=== PATIENT | female | born 2000 | race Two or more races ===

== ENCOUNTER 2023-05-21 09:31 | Inpatient (IN) | payer OTHER ==
[~2023-05-21] VITALS: Ht 167.6 cm; Wt 72.6 kg
[2023-05-21] MEDS ORDERED: ONDANSETRON ODT 4 MG TAB PO ONE (10:15)
[2023-05-21 10:37] LABS: Basophils # (auto) 0 10 ^3/uL (0-0.2); Basophils % (auto) 0.1 % (0.0-2.0); Eosinophils # (auto) 0 10 ^3/uL (0-0.8); Eosinophils % (auto) 0.1 % (0.0-7.0); Hematocrit 36.8 % (36.0-46.0); Hemoglobin 12.1 g/dL (12.2-16.2); Lymphocytes # (auto) 0.5 10 ^3/uL (0.4-5.4); Lymphocytes % (auto) 4.7 % (10.0-50.0); Mean Corpuscular Hemoglobin 29.5 pg (28.0-32.0); Mean Corpuscular Hgb Conc. 32.8 g/dL (32.0-36.0); Mean Corpuscular Volume 89.9 fL (80.0-100.0); Monocytes # (auto) 0.7 10 ^3/uL (0-1.3); Monocytes % (auto) 5.9 % (0.0-12.0); Neutrophils # (auto) 9.9 10 ^3/uL (1.6-8.6); Neutrophils % (auto) 89.2 % (37.0-80.0); Red Blood Cells 4.09 10^6/uL (4.0-5.20); Red Cell Distribution Width 13.4 % (11.8-14.3); White Blood Cell 11.1 10^3/uL (4.4-10.8)
[2023-05-21 10:54] LABS: Albumin 4.1 g/dL (3.2-4.8); Alkaline Phosphatase 47 U/L (46-116); Anion Gap 2 (5-15); Aspartate Aminotransferase 9 U/L (13-40); BUN/Creatinine Ratio 9.9 (10.0-20.0); Blood Urea Nitrogen 8 mg/dL (9-23); Calcium 9.1 mg/dL (8.7-10.4); Carbon Dioxide 28 mmol/L (20-30); Chloride 105 mmol/L (98-107); Glucose 111 mg/dL (74-106); Lipase 38 U/L (12-53); Potassium 3.7 mmol/L (3.5-5.1); Sodium 135 mmol/L (136-145)
[2023-05-21 10:55] LABS: Bilirubin, Total 0.6 mg/dL (0.2-1.0); Total Protein 7.1 g/dL (5.7-8.2)
[2023-05-21 10:56] LABS: Alanine Aminotransferase < 9 U/L (7-40)
[2023-05-21] MEDS: SODIUM CHLORIDE 0.9% 1,000 ML IVB ONE (11:06)
[2023-05-21] MEDS: ONDANSETRON HCL 4 MG/2 ML VIAL IV ONE ×2 (11:07→21:45)
[2023-05-21] MEDS: ONDANSETRON HCL 4 MG/2 ML VIAL ONE (11:11)
[2023-05-21] MEDS: MORPHINE SULFATE INJ 2 MG/ml SYRG IV ONE ×2 (12:29→21:45)
[2023-05-21] MEDS ORDERED: METR-344 PO (13:33)
[2023-05-21] MEDS ORDERED: ACET500T58 PO (13:33)
[2023-05-21] MEDS ORDERED: METO-281 PO (13:33)
[2023-05-21] MEDS: ACETAMINOPHEN 500 MG TAB PO ONE (14:33)
[2023-05-21] MEDS: PIPERACILLIN-TAZOB 3.375GM 100 ML IV ONE (14:34)
[2023-05-21] MEDS: IBUPROFEN 600 MG TAB PO ONE (16:03)
[2023-05-21] MEDS: SODIUM CHLORIDE 0.9% 1,000 ML IV ONE (16:04)
[2023-05-21 19:30] VITALS: PULSE 62; RESP 18; O2SAT 99
[2023-05-21] MEDS: NOREPINEPHRINE 8 MG/250ML KIT 250 ML IV ONE (20:28)
[2023-05-21] MEDS: NOREPINEPHRINE 8 MG/250ML KIT 250 ML IV SCH (20:30)
[2023-05-21 21:24] LABS: Urine Bacteria NONE SEEN /hpf (None Seen); Urine Blood Negative /uL (Negative); Urine Clarity Clear (Clear); Urine Color Yellow (Yellow); Urine Mucus FEW (None Seen); Urine Protein, UAD TRACE (Negative); Urine Specific Gravity 1.027 (1.001-1.035); Urine Urobilinogen Normal (Negative); Urine WBC 13 /hpf (0 - 5)
[2023-05-21] MEDS: ACETAMINOPHEN 325 MG TAB PO ONE (21:36)
[2023-05-21] MEDS ORDERED: DOCUSATE SOD 100 MG CAP PO PRN (22:15)
[2023-05-21] MEDS ORDERED: MORPHINE SULFATE INJ 2 MG/ml SYRG IV PRN (23:45)
[2023-05-21] MEDS ORDERED: NITROGLYCERIN 0.4 MG SL TAB SL PRN (23:45)
[2023-05-22 05:37] LABS: Basophils # (auto) 0 10 ^3/uL (0-0.2); Basophils % (auto) 0.2 % (0.0-2.0); Eosinophils # (auto) 0 10 ^3/uL (0-0.8); Eosinophils % (auto) 0.3 % (0.0-7.0); Hematocrit 31.5 % (36.0-46.0); Hemoglobin 10.4 g/dL (12.2-16.2); Lymphocytes # (auto) 1.2 10 ^3/uL (0.4-5.4); Lymphocytes % (auto) 18.5 % (10.0-50.0); Mean Corpuscular Hemoglobin 29.6 pg (28.0-32.0); Mean Corpuscular Volume 89.6 fL (80.0-100.0); Monocytes # (auto) 0.7 10 ^3/uL (0-1.3); Monocytes % (auto) 10.6 % (0.0-12.0); Neutrophils # (auto) 4.5 10 ^3/uL (1.6-8.6); Neutrophils % (auto) 70.4 % (37.0-80.0); Red Blood Cells 3.51 10^6/uL (4.0-5.20); Red Cell Distribution Width 13.7 % (11.8-14.3); White Blood Cell 6.4 10^3/uL (4.4-10.8)
[2023-05-22 05:50] LABS: Albumin 3.1 g/dL (3.2-4.8); Alkaline Phosphatase 38 U/L (46-116); Aspartate Aminotransferase 9 U/L (13-40); Calcium 7.9 mg/dL (8.7-10.4); Carbon Dioxide 27 mmol/L (20-30); Glucose 89 mg/dL (74-106); Total Protein 5.7 g/dL (5.7-8.2)
[2023-05-22 06:03] LABS: Anion Gap 2 (5-15); Chloride 110 mmol/L (98-107); Potassium 3.3 mmol/L (3.5-5.1); Sodium 139 mmol/L (136-145)
[2023-05-22] MEDS: PIPERACILLIN-TAZOB 3.375GM 100 ML IV SCH (06:03)
[2023-05-22 06:08] LABS: Alanine Aminotransferase < 9 U/L (7-40); BUN/Creatinine Ratio 7.9 (10.0-20.0); Blood Urea Nitrogen < 5 mg/dL (9-23)
[2023-05-22 07:08] LABS: Bilirubin, Total 0.4 mg/dL (0.2-1.0)
[2023-05-22 08:00] VITALS: PULSE 69; RESP 20; O2SAT 99
[2023-05-22] MEDS: IBUPROFEN 600 MG TAB PO PRN (08:23)
[2023-05-22] MEDS: DICYCLOMINE HCL (10MG/ML) 2 ML AMPULE IM ONE (09:33)
[2023-05-22] MEDS: MAALOX PLUS or MAALOX 30 ML PO ONE (09:35)
[2023-05-22] MEDS: LIDOCAINE VISCOUS 2% 15ML UD PO ONE (09:35)
[2023-05-22] MEDS: POTASSIUM CHL 20 Meq TABLET PO ONE (09:55)
[2023-05-22] MEDS: SOD CHL 0.9%/ KCL 40MEQ 1,000 ML IV SCH (11:54)
[2023-05-22] MEDS ORDERED: DICYCLOMINE HCL (10MG/ML) 2 ML AMPULE IM PRN (14:00)
[2023-05-22] MEDS: metroNIDAZOLE 500MG/100ML 100 ML IV SCH (15:01)
[2023-05-22] MEDS: MORPHINE SULFATE INJ 2 MG/ml SYRG IV PRN (15:31)
[2023-05-22 15:42] VITALS: PULSE 77; RESP 18; O2SAT 97
[2023-05-22] MEDS ORDERED: ACET650T12 PO (15:45)
[2023-05-22 16:00] VITALS: BP 102/63; PULSE 68; RESP 20; TEMP 97.4; O2SAT 99
[2023-05-22] MEDS: HYDROcodone-ACET 5/325MG TAB PO PRN (17:14)
[2023-05-22] MEDS: MAALOX PLUS or MAALOX 30 ML PO PRN (17:15)
[2023-05-22 20:00] VITALS: PULSE 74
[2023-05-22 21:00] VITALS: BP 102/54; PULSE 71; RESP 20; TEMP 98.4; O2SAT 98
[2023-05-22] MEDS: ONDANSETRON HCL 4 MG/2 ML VIAL IV PRN (21:42)
[2023-05-23] VITALS (7 sets, daily range): BP systolic 96–143; BP diastolic 49–76; PULSE 53–76; RESP 16–18; TEMP 97.2–98.4; O2SAT 93–100
[2023-05-23] MEDS: MELATONIN 5 MG TAB PO ONE (00:59)
[2023-05-23] MEDS ORDERED: IOHEXOL 300 MG/ML 100ML BOTTLE IJ ONE (06:06)
[2023-05-23] MEDS: AZITHROMYCIN 500MG/ 250ML 250 ML IV SCH (10:21)
[2023-05-23] MEDS ORDERED: LORazepam 2MG/ML-1ML VIAL IV PRN (14:45)
[2023-05-23 15:11] LABS: Basophils # (auto) 0 10 ^3/uL (0-0.2); Basophils % (auto) 0.4 % (0.0-2.0); Eosinophils # (auto) 0 10 ^3/uL (0-0.8); Eosinophils % (auto) 0.5 % (0.0-7.0); Lymphocytes # (auto) 1.7 10 ^3/uL (0.4-5.4); Lymphocytes % (auto) 30.1 % (10.0-50.0); Mean Corpuscular Hemoglobin 29.7 pg (28.0-32.0); Mean Corpuscular Hgb Conc. 33.4 g/dL (32.0-36.0); Mean Corpuscular Volume 88.9 fL (80.0-100.0); Monocytes # (auto) 0.5 10 ^3/uL (0-1.3); Monocytes % (auto) 9.3 % (0.0-12.0); Neutrophils # (auto) 3.4 10 ^3/uL (1.6-8.6); Neutrophils % (auto) 59.7 % (37.0-80.0); Red Blood Cells 3.71 10^6/uL (4.0-5.20); Red Cell Distribution Width 13.3 % (11.8-14.3); White Blood Cell 5.6 10^3/uL (4.4-10.8)
[2023-05-23] MEDS: MECLIZINE HCL 25 MG TAB PO PRN (15:17)
[2023-05-23 16:01] LABS: Chloride 106 mmol/L (98-107); Potassium 3.9 mmol/L (3.5-5.1); Sodium 137 mmol/L (136-145)
[2023-05-23 16:02] LABS: Anion Gap 4 (5-15); Calcium 8.6 mg/dL (8.5-10.1); Carbon Dioxide 27 mmol/L (20-30)
[2023-05-23 16:07] LABS: Glucose 88 mg/dL (74-106)
[2023-05-23 16:11] LABS: BUN/Creatinine Ratio 8.9 (10.0-20.0); Blood Urea Nitrogen < 5 mg/dL (9-23)
[2023-05-23 16:18] LABS: CRP High Sensitivity 2.76 mg/dL (<1.0)
[2023-05-23 17:30] LABS: Erythrocyte Sedimentation Rate 16 mm/hr (0-20)
[2023-05-23] MEDS: CIPROFLOXACIN HCL 500 MG TAB PO SCH (21:25)
[2023-05-24 00:28] LABS: Amphetamine Screen, Urine Neg (NEGATIVE); Barbiturate Scree,Urine Neg (NEGATIVE); Benzodiazephine Screen, Urine Neg (NEGATIVE); Cannabinoid Screen, Urine Neg (NEGATIVE); Cocaine Screen, Urine Neg (NEGATIVE); Opiate Scree,Urine Neg (NEGATIVE); Phencyclidine Screen, Urine Neg (NEGATIVE)
[2023-05-24 01:00] VITALS: BP 95/56; PULSE 54; RESP 18; TEMP 98.3; O2SAT 95
[2023-05-24 02:11] VITALS: BP 95/56; PULSE 54; RESP 18; TEMP 98.3; O2SAT 95
[2023-05-24 06:40] LABS: Anion Gap 4 (5-15); Carbon Dioxide 26 mmol/L (20-30); Chloride 107 mmol/L (98-107); Potassium 4.2 mmol/L (3.5-5.1); Sodium 137 mmol/L (136-145)
[2023-05-24 06:42] LABS: Calcium 8.8 mg/dL (8.5-10.1)
[2023-05-24 06:46] LABS: Glucose 87 mg/dL (74-106)
[2023-05-24 07:10] LABS: BUN/Creatinine Ratio 9.2 (10.0-20.0); Blood Urea Nitrogen 6 mg/dL (9-23)
[2023-05-24 08:00] VITALS: PULSE 52
[2023-05-24 09:00] VITALS: BP 109/60; PULSE 59; RESP 20; TEMP 98.9; O2SAT 99
[2023-05-24] MEDS ORDERED: CIP500T PO (12:18)
[2023-05-24] MEDS ORDERED: MET500T PO (12:18)
[2023-05-24 12:44] VITALS: TEMP 37.2
[2023-05-24 13:00] VITALS: BP 102/49; PULSE 67; RESP 18; TEMP 97.8; O2SAT 99
== END 2023-05-24 14:00 | disposition home or self-care (01) | DRG 720 ==
LOC: ER 09:31 → TELE 23:43 → TELE-WESTW 05-22 16:30
PROVIDERS: ADMIT Nurse Practitioner Acute Care; ATTEND Internal Medicine
DX: A41.9 Sepsis, unspecified organism (principal); E87.6 Hypokalemia; K52.9 Noninfective gastroenteritis and colitis, unspecified; N39.0 Urinary tract infection, site not specified; F15.90 Other stimulant use, unspecified, uncomplicated; Z80.8 Family history of malignant neoplasm of other organs or systems
CPT/HCPCS: 36415; 70450; 70551; 74176; 74177; 80048; 80053; 80307; 81001; 82270; 82550; 82962; 83605; 83690; 85025; 85652; 86141; 87040; 87045; 87086; 87177; 87427; 93306; 96365; 96375; G0378; J2405; J2543; J3490

== ENCOUNTER 2024-12-22 23:55 | Emergency (ER) | payer MEDICAID, OTHER ==
[~2024-12-22] VITALS: Ht 160 cm; Wt 68.0 kg
[~2024-12-22 23:55] MED LIST: ACET500T58 PO; ACET650T12 PO; CIP500T PO; MET500T PO; METO-281 PO; METR-344 PO
--- NOTE | 2024-12-23 00:18 | ED.PDOC ---
History of Present Illness HPI Comments 24-year-old female who came to ER for anxiety. Patient has been having problems with the custody of her child, that about 1 hour prior to arrival, she started having uncontrollable anxiety/ panic attacks. Chief Complaint: Anxiety Time Seen by MD: 00:17 Primary Care Provider: none Reviewed Notes: Nurses Notes Allergies: Coded Allergies: NO KNOWN ALLERGIES (Unverified , 05/21/23) Home Meds Active Scripts Trazodone Hcl (Trazodone Hcl) 150 Mg Tab, 1 TAB PO QPM, #90 TAB 3 Refills Prov:VANNA HINTON MD 12/23/24 Hydroxyzine Pamoate (Vistaril) 25 Mg Cap, 1 CAP PO TID PRN, #90 CAP Prov:VANNA HINTON MD 12/23/24 Metronidazole (Metronidazole) 500 Mg Tab, 500 MG PO TID for 5 Days, #15 TAB Prov:HAYES GUERRERO MD 05/24/23 Ciprofloxacin Hydrochloride (Ciprofloxacin HCl) 500 Mg Tab, 500 MG PO BID for 5 Days, #10 TAB Prov:HAYES GUERRERO MD 05/24/23 Metronidazole (Flagyl) 500 Mg Tab, 1 TAB PO TID for 7 Days, #21 TAB Prov:ANISH DUMONT DO 05/21/23 Metoclopramide Hcl (Reglan) 10 Mg Tab, 10 MG PO TIDPRN PRN for 10 Days, #30 TAB Prov:ANISH DUMONT DO 05/21/23 Acetaminophen (Acetaminophen) 500 Mg Tab, 500 MG PO QIDPRN PRN for 10 Days, #40 TAB Prov:ANISH DUMONT DO 05/21/23 Reported Medications Acetaminophen (Acetaminophen Er) 650 Mg Tab, 650 MG PO, TAB 05/22/23 Information Source: Patient Mode of Arrival: Ambulatory Severity: Moderate Past Medical History PAST MEDICAL HISTORY: Anxiety Surgical History: Denies all surgeries 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 Family History Family History: Reviewed,noncontributory to illness Social History Smoker: Non-Smoker Alcohol: Denies ETOH Use Drugs: Denies Drug Use Lives In: Home Constitutional: denies: chills, diaphoresis, fatigue, fever, malaise, sweats, weakness, others EENTM: denies: blurred vision, double vision, ear bleeding, ear discharge, ear drainage, ear pain, ear ringing, eye pain, eye redness, hearing loss, mouth pain, mouth swelling, nasal discharge, nose bleeding, nose congestion, nose pain, photophobia, tearing, throat pain, throat swelling, voice changes, others Respiratory: denies: cough, hemoptysis, orthopnea, SOB at rest, shortness of breath, SOB with excertion, stridor, wheezing, others Cardiovascular: denies: chest pain, dizzy spells, diaphoresis, Dyspnea on exertion, edema, irregular heart beat, left arm pain, lightheadedness, palpitations, PND, syncope, others Gastrointestinal: denies: abdomen distended, abdominal pain, blood streaked bowels, constipated, diarrhea, dysphagia, difficulty swallowing, hematemesis, melena, nausea, poor appetite, poor fluid intake, rectal bleeding, rectal pain, vomiting, others Genitourinary: denies: abnormal vagina bleeding, burning, dyspareunia, dysuria, flank pain, frequency, hematuria, incontinence, pain, , vagina discharge, urgency, others Neurological: denies: dizziness, fainting, headache, left sided numbness, left sided weakness, numbness, paresthesia, pre-existing deficit, right sided numbness, right sided weakness, seizure, speech problems, tingling, tremors, weakness, others Musculoskeletal: denies: back pain, gout, joint pain, joint swelling, muscle pain, muscle stiffness, neck pain, others Integumetry: denies: bruises, change in color, change in hair/nails, dryness, laceration, lesions, lumps, rash, wounds, others Allergic/Immunocompromised: denies: Difficulty Healing, Frequent Infections, Hives, Itching, others Hematologic/Lymphatic: denies: anemia, blood clots, easy bleeding, easy bruising, swollen glands, others Endocrine: denies: excessive hunger, excessive sweating, excessive thirst, excessive urination, flushing, intolerance to cold, intolerance to heat, unexplained weight gain, unexplained weight loss, others Psychiatric: reports: anxiety; denies: bipolar disorder, depression, hopeless, panic disorder, schizophrenia, sleepless, suicidal, others Physical Exam General Appearance: No Apparent Distress, Normal HEENT: Normal ENT Inspection, Pharynx Normal, TMs Normal Neck: Full Range of Motion, Non-Tender, Normal, Normal Inspection Respiratory: Chest Non-Tender, Lungs Clear, No Accessory Muscle Use, No Respiratory Distress, Normal Breath Sounds Cardiovascular: No Edema, No JVD, No Murmur, No Gallop, Normal Peripheral Pulses, Regular Rate/Rhythm Breast Exam: Deferred Gastrointestinal: No Organomegaly, Non Tender, No Pulsatile Mass, Normal Bowel Sounds, Soft Genitalia: Deferred Pelvic: Deferred Rectal: Deferred Extremities: No calf tenderness, Normal capillary refill, Normal inspection, Normal range of motion, Non-tender, No pedal edema Musculoskeletal : Apperance: Normal Neurologic: Alert, rabble furnace tender II-XII nml as Tested, No Motor Deficits, Normal Affect, Normal Mood, No Sensory Deficits Cerebellar Function: Normal Reflexes: Normal Skin: Dry, Normal Color, Warm Lymphatic: No Adenopathy Was a procedure done? Was a procedure done?: No Differential Dx Considerations may include: Anxiety, panic disorder, depression X-Ray, Labs, Meds, VS Vital Signs Date Time Temp Pulse Resp B/P (MAP) Pulse Ox O2 Delivery O2 Flow Rate FiO2 12/23/24 02:58 98.0 65 18 114/72 (86) 98 98.0 12/23/24 02:58 65 18 98 Room Air* 0 21 12/22/24 23:55 98.3 74 18 117/65 97 98.3 Lab Test 12/23/24 00:58 Range/Units White Blood Count 5.8 4.4-10.8 10^3/uL Red Blood Count 4.20 4.0-5.20 10^6/uL Hemoglobin 12.9 12.2-16.2 g/dL Hematocrit 37.6 36.0-46.0 % Mean Corpuscular Volume 89.6 80.0-100.0 fL Mean Corpuscular Hemoglobin 30.7 28.0-32.0 pg Mean Corpuscular Hemoglobin Concent 34.2 32.0-36.0 g/dL Red Cell Distribution Width 12.3 11.8-14.3 % Platelet Count 224 140-450 10^3/uL Mean Platelet Volume 9.1 6.9-10.8 fL Neutrophils (%) (Auto) 60.1 37.0-80.0 % Lymphocytes (%) (Auto) 33.1 10.0-50.0 % Monocytes (%) (Auto) 5.3 0.0-12.0 % Eosinophils (%) (Auto) 0.5 0.0-7.0 % Basophils (%) (Auto) 1.0 0.0-2.0 % Neutrophils # (Auto) 3.5 1.6-8.6 10 ^3/uL Lymphocytes # (Auto) 1.9 0.4-5.4 10 ^3/uL Monocytes # (Auto) 0.3 0-1.3 10 ^3/uL Eosinophils # (Auto) 0 0-0.8 10 ^3/uL Basophils # (Auto) 0.1 0-0.2 10 ^3/uL Nucleated Red Blood Cells 0.0 % Sodium Level 139 136-145 mmol/L Potassium Level 3.3 L 3.5-5.1 mmol/L Chloride Level 106 98-107 mmol/L Carbon Dioxide Level 21 20-31 mmol/L Anion Gap 12 5-15 Blood Urea Nitrogen 13 9-23 mg/dL Creatinine 0.79 0.550-1.02 mg/dL Glomerular Filtration Rate Calc 106 >90 mL/min BUN/Creatinine Ratio 16.5 10.0-20.0 Serum Glucose 98 74-106 mg/dL Calcium Level 8.9 8.7-10.4 mg/dL Magnesium Level 1.8 1.6-2.6 mg/dL Total Bilirubin 0.4 0.2-1.0 mg/dL Aspartate Amino Transferase (AST) 16 13-40 U/L Alanine Aminotransferase (ALT) 14 7-40 U/L Alkaline Phosphatase 54 46-116 U/L Total Protein 7.5 5.7-8.2 g/dL Albumin 4.4 3.2-4.8 g/dL Plasma/Serum Blood Alcohol < 3.0 <10 mg/dL Current Medications Medications (Trade) Dose Ordered Sig/Neva Route Start Time Stop Time Status Last Admin Lorazepam (Ativan Inj) 2 mg ONCE ONCE IM 12/23/24 00:15 12/23/24 00:16 DC 12/23/24 00:20 Time of 1ST Reevaluation: 00:15 Reevaluation 1ST: Unchanged Patient Education/Counseling: Diagnosis, Treatment Family Education/Counseling: Diagnosis, Treatment SEPSIS Sepsis Screen Physician Orders Urinalysis (12/23/24 00:05) Test, Urine (12/23/24 00:05) Drug Screen (12/23/24 00:05) Vital Signs Date Time Temp Pulse Resp B/P (MAP) Pulse Ox O2 Delivery O2 Flow Rate FiO2 12/23/24 02:58 98.0 65 18 114/72 (86) 98 98.0 12/23/24 02:58 65 18 98 Room Air* 0 21 12/22/24 23:55 98.3 74 18 117/65 97 98.3 Laboratory Tests Test 12/23/24 00:58 White Blood Count 5.8 10^3/uL (4.4-10.8) Medications Medications Dose Ordered Sig/Neva Route Start Time Stop Time Status Last Admin Dose Admin Lorazepam 2 mg ONCE ONCE IM 12/23/24 00:15 12/23/24 00:16 DC 12/23/24 00:20 Departure 1 Departure Time of Disposition: 02:00 Impression: Primary Impression: Stress reaction causing mixed disturbance of emotion and conduct Disposition: 01 HOME / SELF CARE / HOMELESS Condition: Stable e-Prescriptions Trazodone Hcl (Trazodone Hcl) 150 Mg Tab 1 TAB PO QPM, #90 TAB 3 Refills Prov: VANNA HINTON MD 12/23/24 Hydroxyzine Pamoate (Vistaril) 25 Mg Cap 1 CAP PO TID PRN, #90 CAP Prov: VANNA HINTON MD 12/23/24 Discharged With: Self Critical Care Note Critical Care Time?: No Stability Stability form required: No Heart Score Heart Score: Heart Score Response (Comments) Value History N/A 0 EKG N/A 0 Age N/A 0 Risk Factors N/A 0 Troponin N/A 0 Total 0 I personally scribed for VANNA HINTON MD ([email or web address]) on 12/23/24 at 00:18. Electronically submitted by Murali Gastelum ([email or web address]). VANNA HINTON MD Dec 23, 2024 00:18
[2024-12-23] MEDS: LORazepam 2MG/ML-1ML VIAL IM ONE (00:20)
[2024-12-23 01:26] LABS: Hematocrit 37.6 % (36.0-46.0); Hemoglobin 12.9 g/dL (12.2-16.2); Mean Corpuscular Hemoglobin 30.7 pg (28.0-32.0); Mean Corpuscular Volume 89.6 fL (80.0-100.0); Nucleated Red Blood Cells % 0.0 %
[2024-12-23 01:37] LABS: Alanine Aminotransferase 14 U/L (7-40); Albumin 4.4 g/dL (3.2-4.8); Alkaline Phosphatase 54 U/L (46-116); Anion Gap 12 (5-15); BUN/Creatinine Ratio 16.5 (10.0-20.0); Blood Urea Nitrogen 13 mg/dL (9-23); Calcium 8.9 mg/dL (8.7-10.4); Carbon Dioxide 21 mmol/L (20-31); Chloride 106 mmol/L (98-107); Glucose 98 mg/dL (74-106); Magnesium 1.8 mg/dL (1.6-2.6); Sodium 139 mmol/L (136-145); Total Protein 7.5 g/dL (5.7-8.2)
[2024-12-23 01:38] LABS: Bilirubin, Total 0.4 mg/dL (0.2-1.0)
[2024-12-23 01:42] LABS: Potassium 3.3 mmol/L (3.5-5.1)
[2024-12-23] MEDS ORDERED: HYDR25CA PO (01:45)
[2024-12-23] MEDS ORDERED: TRAZ1TAB12 PO (01:45)
[2024-12-23] MEDS: POTASSIUM CHL 20 Meq TABLET PO ONE (02:31)
[2024-12-23 02:58] VITALS: BP 114/72; PULSE 65; RESP 18; TEMP 98; O2SAT 98
== END 2024-12-23 02:57 | disposition home or self-care (01) ==
LOC: ER 23:55
DX: F43.9 Reaction to severe stress, unspecified (principal); F41.9 Anxiety disorder, unspecified; Z79.899 Other long term (current) drug therapy
CPT/HCPCS: 36415; 80053; 80320; 83735; 85025; 96372; 99283; J2060